=== PATIENT | female | born 1960 | race Caucasian/White ===

== ENCOUNTER → 2016-03-02 | Outpatient (CLI) | payer BC ==
[~2016-03-02] MED LIST: AMIT50TA3 PO; AMOX-355 PO; ASP81CT PO; HYDR-3714 PO; HYDR-3816 PO; HYDR1TAB PO; IBUP-1773 PO; MELO7.5T PO; NAPR550T PO; PNT40TEC PO; PRD20T PO; RABE20TA PO; SERT50TA PO; TOLT4CAP PO; TRAM-21 PO
--- NOTE | 2016-03-02 09:29 | Diagnostic Imaging Report ---
PROCEDURE: MRI left joint lower extremity without contrast. TECHNIQUE: Multiplanar, multisequence non contrast-enhanced MRI of the left lower extremity was accomplished. INDICATION: Left knee pain. COMPARISON: There are no previous MRI examinations available for comparison. The plain film examination of the left knee performed 01/07/2016 failed to show any sign of an acute abnormality. FINDINGS: On the proton dense parasagittal images of this exam, there is no abnormal signal arising from either meniscus to indicate a tear. The coronal images were also unremarkable for a tear. The anterior and posterior cruciate ligaments, the quadriceps and infrapatellar tendons and the collateral ligaments are intact. There is no sign of a tear involving the biceps femoris tendon, the iliotibial band or either the medial or lateral retinaculum. There is no abnormal signal arising from the osseous structures to suggest bone edema or fracture. There is mild degenerative disease involving the articular surfaces of the femoral condyles. There may be slight narrowing of the lateral aspect of the patellofemoral space. There is a small joint effusion present. There is also a lobulated 0.9 x 4.1 cm Adhikari's cyst. IMPRESSION: 1. There is no evidence for a tear of either meniscus. 2. The major ligaments and tendons are intact. 3. There is no sign of an acute bony abnormality. There is mild narrowing of the lateral aspect of the patellofemoral space however. 4. There is a small joint effusion and a Adhikari's cyst. Dictated by: Dictated on workstation # [id number]
== END ==
LOC: RAD 07:54
PROVIDERS: ATTEND Nurse Practitioner Family
DX: M25.562 Pain in left knee (principal)
CPT/HCPCS: 73721

== ENCOUNTER → 2016-05-23 | Outpatient (CLI) | payer BC ==
--- NOTE | 2016-05-23 10:10 | Diagnostic Imaging Report ---
3 views of lumbar spine. INDICATION: Back pain. FINDINGS: There is a satisfactory alignment of the posterior spinal line. The vertebral body heights are preserved. Disc heights are also preserved. There is no significant osteophyte formation. Sclerotic degenerative changes in the SI joints are noted. 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 No acute process. Dictated by: Dictated on workstation # [id number]
== END ==
LOC: RAD 09:35
PROVIDERS: ATTEND Nurse Practitioner Family
DX: M46.98 Unspecified inflammatory spondylopathy, sacral and sacrococcygeal region (principal)
CPT/HCPCS: 72100

== ENCOUNTER → 2017-06-01 | Outpatient (CLI) | payer BC ==
[~2017-06-01] MED LIST changes: +HYDR-34 PO; -HYDR-3816 PO
--- NOTE | 2017-06-01 10:18 | Diagnostic Imaging Report ---
INDICATION: Chest pain and cough. TIME OF EXAM: 09:11 a.m. Comparison is made with prior study from 11/06/2011. The heart size is stable. Calcified granuloma right upper lobe is stable. Lungs are clear of acute infiltrates. The pulmonary vascularity is normal. No effusion or pneumothorax is seen. IMPRESSION: Stable chest. No acute feature is detected. Dictated by: Dictated on workstation # [id number]
== END ==
LOC: RAD 08:42
PROVIDERS: ATTEND Nurse Practitioner Family
DX: R05 Cough (principal); R07.9 Chest pain, unspecified; Z72.0 Tobacco use
CPT/HCPCS: 71046

== ENCOUNTER → 2017-06-29 | Outpatient (CLI) | payer BC | LOC: CARD 08:35 | PROVIDERS: ATTEND Internal Medicine Cardiovascular Disease | DX: R07.89 Other chest pain (principal); E78.5 Hyperlipidemia, unspecified; R06.02 Shortness of breath; E66.8 Other obesity; Z72.0 Tobacco use; I07.1 Rheumatic tricuspid insufficiency | CPT/HCPCS: 93306 ==

== ENCOUNTER → 2017-07-06 | Outpatient (CLI) | payer BC ==
[~2017-07-06] MED LIST changes: +CATHETER FLUSH 10 ML SYR IV PRN; +REGADENOSON 0.4 MG/5 ML SYR (LEXISCAN) IV ONE
[2017-07-06 09:19] VITALS: BP 126/70
[2017-07-06 09:22] VITALS: BP 122/99
--- NOTE | 2017-07-13 09:46 | STRESS TEST ---
DATE OF SERVICE: 07/06/2017 RESTING AND POST REGADENOSON TECHNETIUM 99M TETROFOSMIN SPECT CT IMAGING ORDERING PHYSICIAN: Cleopatra House MD, KRYSTIN, FACP, FACC PRIMARY PHYSICIAN: Tara Lee MD. CLINICAL DIAGNOSIS: Chest discomfort. Baseline images were carried out after injection of 10.46 mCi technetium-99m Tetrofosmin. This was followed by 0.4 mm regadenoson and 29.8 mCi of technetium-99m Tetrofosmin for stress imaging. The electrocardiogram showed sinus rhythm at baseline and it did not change significantly with the regadenoson infusion. The patient noted mild shortness of breath and abdominal cramping following regadenoson infusion, which resolved in a few minutes. Review of images at rest and following stress does not indicate any significant perfusion defects consistent with myocardial ischemia or infarction. Gated images show normal global left ventricular systolic function with normal regional wall motion. Left ventricular ejection fraction is calculated to be 66%. Left ventricular end diastolic volume is 50 mL. TID is absent (1.15). CONCLUSIONS: 1. No evidence of any significant myocardial ischemia or infarction on this study. 2. Normal regional wall motion. 3. Normal global left ventricular systolic function with a calculated ejection fraction of 66%. Job ID: [id number] DocumentID: [id number] Dictated Date: 07/13/2017 07:01:39 Epitaxial Reactor Operator Date: 07/13/2017 09:46:11 Dictated By: CLEOPATRA HOUSE MD, KRYSTIN, FACP, FACC,
== END ==
LOC: CARD 06:49
PROVIDERS: ATTEND Internal Medicine Cardiovascular Disease
DX: R07.89 Other chest pain (principal); R06.02 Shortness of breath; Z72.0 Tobacco use; E78.5 Hyperlipidemia, unspecified; E66.8 Other obesity
CPT/HCPCS: 78452; 93017

== ENCOUNTER → 2020-05-13 | Outpatient (CLI) | payer OTHER ==
[~2020-05-13] MED LIST changes: -CATHETER FLUSH 10 ML SYR IV PRN; -REGADENOSON 0.4 MG/5 ML SYR (LEXISCAN) IV ONE
--- NOTE | 2020-05-13 09:32 | Diagnostic Imaging Report ---
INDICATION: Cough PA and lateral chest FINDINGS: The heart size and pulmonary vascularity are normal. Lungs are clear. There are no effusions or pneumothoraces. There is a small calcified granuloma in the right apex. IMPRESSION: No acute abnormalities in the chest. Dictated by: Dictated on workstation # [id number]
== END ==
LOC: RAD 09:12
PROVIDERS: ATTEND Nurse Practitioner Family
DX: R05 Cough (principal)
CPT/HCPCS: 71046

== ENCOUNTER → 2020-11-03 | Outpatient (CLI) | payer OTHER ==
--- NOTE | 2020-11-03 13:07 | Diagnostic Imaging Report ---
Indication: Low back pain with right leg radiculopathy Lumbar spine AP lateral views of lumbar spine shows normal vertebral body height and alignment. Disc spaces are normal. There is no spondylolysis or spondylolisthesis. IMPRESSION: Unremarkable lumbar spine. Dictated by: Dictated on workstation # [id number]
== END ==
LOC: RAD 09:55
PROVIDERS: ATTEND Nurse Practitioner Family
DX: M54.16 Radiculopathy, lumbar region (principal)
CPT/HCPCS: 72100

== ENCOUNTER → 2020-11-24 | Outpatient (CLI) | payer OTHER ==
--- NOTE | 2020-11-24 14:39 | Diagnostic Imaging Report ---
CLINICAL INDICATION: Patient with right hip pain. EXAM: MRI of the lumbar spine performed without IV contrast. Sagittal T2, sagittal T1, sagittal T2 fat-sat, and axial T2. COMPARISON: MRI lumbar spine without contrast dated 01/12/2011. FINDINGS: There is no acute lumbar spine fracture or dislocation. There are minimal Modic type I degenerative signal changes anteriorly involving the T11-T12 and T12-L1 levels. There are small anterior spurs involving the thoracolumbar spine and L4-L5 level. Limited visualization of the distal thoracic spinal cord, conus medullaris, and cauda equina nerve roots is unremarkable. Conus medullaris tip is seen at the upper L2 vertebral body level. There is no significant paraspinal soft tissue abnormality. T11-T12: There is interval development of a small posterior disc bulge. There is also development of mild prominence of the posterior epidural fat. There is hstw-ew-[id number] central canal narrowing. There is no significant neural foramen narrowing. T12-L1, L1-L2, and L2-L3: Unremarkable. L3-L4: There is interval progression of mild bilateral facet arthropathy and mild prominence of the posterior epidural fat. There is no significant disc bulge. There is no significant central spinal canal or neural foramen narrowing. L4-L5: There is interval development of a mild diffuse disc bulge. There is mild loss of disc space height and low T2 degenerative disc signal changes which have progressed in the interim. There is moderate bilateral facet arthropathy/hypertrophy which has slightly progressed. There is mild prominence of the posterior epidural fat which has slightly progressed. There is mild central canal narrowing. There is mild left neural foramen narrowing which has progressed in the interim. There is no significant right neural foramen narrowing. L5-S1: There is a focal annular tear involving the posterior aspect of the disc. There is no significant disc bulge. There is moderate left facet arthropathy and mild right facet arthropathy which has slightly progressed. There is no significant central canal or neural foramen narrowing. 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 Dictated by: Dictated on workstation # [id number]
== END ==
LOC: RAD 11-18 08:45
PROVIDERS: ATTEND Nurse Practitioner Family
DX: M47.817 Spondylosis without myelopathy or radiculopathy, lumbosacral region (principal); M51.37 Other intervertebral disc degeneration, lumbosacral region; M51.36 Other intervertebral disc degeneration, lumbar region; M48.05 Spinal stenosis, thoracolumbar region; M51.25 Other intervertebral disc displacement, thoracolumbar region
CPT/HCPCS: 72148

== ENCOUNTER → 2021-12-21 | Outpatient (CLI) | payer OTHER ==
--- NOTE | 2021-12-21 12:22 | Diagnostic Imaging Report ---
HISTORY: Low back pain, fall on COMPARISON: 11/03/2020 TECHNIQUE: 3 views lumbar spine FINDINGS: Alignment of the lumbar spine appears normal with no spondylolisthesis. Vertebral body heights are preserved. No acute fracture is seen. There are mild degenerative changes at L4-L5 and L5-S1. There is facet arthropathy in the lower lumbar spine. Bilateral sacral iliac joints are patent. There is aortic atherosclerosis. There is moderate stool in the colon. IMPRESSION: 1. Mild degenerative changes in the lumbar spine with no acute osseous abnormality seen. Dictated by: Dictated on workstation # [id number]
== END ==
LOC: RAD 08:45
PROVIDERS: ATTEND Nurse Practitioner Family
DX: M47.816 Spondylosis without myelopathy or radiculopathy, lumbar region (principal)
CPT/HCPCS: 72100